=== PATIENT | male | born 1980 | race Two or more races ===

== ENCOUNTER 2022-12-07 22:05 | Emergency (ER) | payer MEDICAID, OTHER ==
[~2022-12-07] VITALS: Ht 165.1 cm; Wt 101.0 kg
[2022-12-08 04:15] VITALS: BP 134/73
== END 2022-12-08 04:15 | disposition home or self-care (01) ==
LOC: ER 22:05
DX: M62.831 Muscle spasm of calf (principal); M79.661 Pain in right lower leg; E78.5 Hyperlipidemia, unspecified; I10 Essential (primary) hypertension
CPT/HCPCS: 73562; 93971